=== PATIENT | male | born 1980 | race Hispanic/Latino ===

== ENCOUNTER 2018-07-11 19:00 | Emergency (ER) | payer BC ==
[2018-07-11 19:36] LABS: BASOPHILS % (AUTO) 0.4 % (0.0-5.0); HEMATOCRIT 44.9 % (42-54); LYMPHOCYTES % (AUTO) 27.2 % (21.0-51.0); MEAN CORPUSCULAR HEMOGLOBIN 27.5 pg (27.0-33.0); MEAN CORPUSCULAR VOLUME 83.5 fL (79-99); MONOCYTES % (AUTO) 7.6 % (3.0-13.0); NEUTROPHILS % (AUTO) 63.8 % (40.0-77.0); PLATELET COUNT (AUTO) 266 K/uL (130-400); RED BLOOD CELL COUNT(AUTO) 5.38 MIL/uL (4.50-6.20); RED CELL DISTRIBUTION WIDTH 14.1 % (11.0-15.5); WHITE BLOOD COUNT (AUTO) 6.7 K/uL (4.8-10.8)
[2018-07-11 19:53] LABS: CREATININE 1.1 mg/dL (0.5-1.5)
[2018-07-11 19:58] LABS: ALBUMIN 3.9 g/dL (3.5-5.0); BILIRUBIN,TOTAL 0.2 mg/dL (0.2-1.0); TOTAL PROTEIN, SERUM 8.1 g/dL (6.0-8.3)
== END 2018-07-11 21:27 | disposition home or self-care (01) ==
LOC: EDH 19:00
DX: R20.2 Paresthesia of skin (principal); R00.2 Palpitations; R20.0 Anesthesia of skin; Z72.0 Tobacco use
CPT/HCPCS: 36415; 80053; 84484; 85025; 93005